=== PATIENT | female | born 1955 | race Asian ===

== ENCOUNTER 2020-06-26 22:26 | Emergency (ER) | payer OTHER ==
[~2020-06-26] VITALS: Ht 167.6 cm; Wt 99.8 kg
--- NOTE | 2020-06-26 22:30 | NUR ---
biba to bed 01
[2020-06-26 22:35] VITALS: BP 117/75
--- NOTE | 2020-06-26 22:48 | NUR ---
65 Y/O FEMALE C/O biba from [facility] [place] for body spasms x 2 days. states spasms occur every 5 minutes pmhx: muscle weakness, htn nka
[2020-06-26] MEDS ORDERED: diazePAM 5 MG TAB PO ONE (23:25)
[2020-06-26] MEDS ORDERED: NACL 0.9% 500 ML IV ONE (23:25)
[2020-06-26] MEDS ORDERED: KETOROLAC 15 MG/ML VIAL IVP ONE (23:25)
--- NOTE | 2020-06-26 23:43 | NUR ---
PT RESTING IN BED IN POSITION OF COMFORT, BED LOW AND LOCKED, SIDERAILS UP, VSS, WILL CONTINUE TO MONITOR
[2020-06-26 23:49] LABS: ANION GAP 13.4 (8-16); CARBON DIOXIDE 26.4 mmol/L (21-32); CREATININE 0.8 mg/dL (0.6-1.3); POTASSIUM 3.8 mmol/L (3.5-5.1)
--- NOTE | 2020-06-27 00:03 | NUR ---
covering for relief for primary AMANDA Ford. assumed pt care at this time.
--- NOTE | 2020-06-27 00:35 | NUR ---
PT RESTING IN BED IN POSITION OF COMFORT, BED LOW AND LOCKED, SIDERAILS UP, VSS, WILL CONTINUE TO MONITOR
[2020-06-27] MEDS ORDERED: HYDROcodone/APAP 10/325 MG 1 TAB TAB PO ONE (01:05)
--- NOTE | 2020-06-27 01:39 | NUR ---
PT RESTING IN BED IN POSITION OF COMFORT, BED LOW AND LOCKED, SIDERAILS UP, VSS, WILL CONTINUE TO MONITOR
[2020-06-27] MEDS ORDERED: diazePAM 5 MG TAB PO ONE (02:05)
[2020-06-27] MEDS ORDERED: diphenhydrAMINE 50 MG/ML VIAL IVP ONE (02:10)
[2020-06-27] MEDS ORDERED: LORazepam 2 MG/ML VIAL IVP ONE (02:35)
--- NOTE | 2020-06-27 03:42 | NUR ---
PT RESTING IN BED IN POSITION OF COMFORT, BED LOW AND LOCKED, SIDERAILS UP, VSS, WILL CONTINUE TO MONITOR
--- NOTE | 2020-06-27 05:07 | NUR ---
PT RESTING IN BED IN POSITION OF COMFORT, BED LOW AND LOCKED, SIDERAILS UP, VSS, WILL CONTINUE TO MONITOR
--- NOTE | 2020-06-27 06:48 | NUR ---
PT RESTING IN BED IN POSITION OF COMFORT, BED LOW AND LOCKED, SIDERAILS UP, VSS, WILL CONTINUE TO MONITOR
--- NOTE | 2020-06-27 07:15 | NUR ---
REPORT RECEIVED FROM ANA MARIA PATEL, TRANSFER OF CARE AT THIS TIME
--- NOTE | 2020-06-27 07:18 | NUR ---
Pt report given to AMANDA LEAVITT. Transfer of care at this time.
--- NOTE | 2020-06-27 07:47 | NUR ---
PT STATES PAIN IN RIGHT HAND, GAGANDEEP MADE AWARE Addendum: 06/27/[address] NEGRON MADE AWARE
[2020-06-27] MEDS ORDERED: ONDANSETRON 4 MG/2 ML VIAL IVP ONE (07:50)
[2020-06-27] MEDS ORDERED: MORPHINE SULFATE 4 MG/ML SYR IVP ONE (07:50)
--- NOTE | 2020-06-27 09:30 | NUR ---
PT RESTING WITH EYES CLOSED, BREATHING EVEN AND UNLABORED. NO DISTRESS NOTED.
[2020-06-27 10:25] VITALS: BP 112/63
--- NOTE | 2020-06-27 10:25 | NUR ---
Patient discharged with v/s stable. Written and verbal after care instructions about myalgia given and explained. Patient alert, oriented and verbalized understanding of instructions. Ambulance Transport with to retirement. All questions addressed prior to discharge. ID band removed. Patient advised to follow up with PMD. Rx of gabapentin given. Patient educated on indication of medication including possible reaction and side effects. Opportunity to ask questions provided and answered.
== END 2020-06-27 10:25 | disposition home or self-care (01) ==
LOC: MED 22:26
DX: M62.838 Other muscle spasm (principal); M62.541 Muscle wasting and atrophy, not elsewhere classified, right hand; G89.29 Other chronic pain
CPT/HCPCS: 36415; 80048; 96361; 96374; 96375; 99285; J1200; J1885; J2060; J2270; J2405; J7030